=== PATIENT | female | born 1985 | race Caucasian/White ===

== ENCOUNTER 2019-05-17 11:26 | Emergency (ER) | payer OTHER ==
[2019-05-17 11:39] VITALS: BP 124/85; PULSE 96; RESP 16; TEMP 97.9
--- NOTE | 2019-05-17 12:39 | XR ---
EXAMINATION TYPE: XR forearm bilateral DATE OF EXAM: 05/17/2019 COMPARISON: None HISTORY: Possible abscesses along bilateral mid ulnar forearms TECHNIQUE: Lateral forms are examined in 2 projections each FINDINGS: Right forearm: There is soft tissue swelling over the ulnar aspect of the right forearm. Mi ld soft tissue swelling is also over the proximal ulnar aspect of the left forearm. No underlying foreign bodies are identified. Osseous structures appear intact. IMPRESSION: 1. No radiopaque foreign bodies. 2. Soft tissue swelling proximal bilateral ulnar aspect forearms.
--- NOTE | 2019-05-17 13:39 | ED ---
General Adult HPI - General Chief complaint: Skin/Abscess/Foreign Body Stated complaint: Abcess on arms Time Seen by Provider: 05/17/19 11:44 Source: patient, RN notes reviewed Mode of arrival: ambulatory Limitations: no limitations - History of Present Illness Initial comments: 33-year-old female presents to the emergency department for a chief complaint of nodules to the bilateral arms. Patient states they have been there for over 2 months. Patient is an IV drug abuser. Patient denies any fevers or chills. States that she started on Bactrim a few days ago and these have actually improved since.Patient has no other complaints at this time including shortness of breath, chest pain, abdominal pain, nausea or vomiting, headache, or visual changes. - Related Data Home Medications Medication Instructions Recorded Confirmed Acetaminophen [Tylenol Arthritis] 650 mg PO Q4H PRN 05/17/19 05/17/19 Buprenorphine HCl [Subutex] See Taper SL DIRECTED 05/17/19 05/17/19 Calcium Carb/Magnesium Ox,Carb 2 tab PO DAILY 05/17/19 05/17/19 [Kurt-Mag 500-250 MG Chewable] Hyoscyamine Sulfate [Levsin] 0.125 mg PO QID PRN 05/17/19 05/17/19 Ibuprofen [Motrin] 600 mg PO Q6HR PRN 05/17/19 05/17/19 Loperamide [Imodium] 2 mg PO Q6H PRN 05/17/19 05/17/19 Mirtazapine [Remeron] 15 mg PO HS 05/17/19 05/17/19 Ondansetron HCl [Zofran] 8 mg PO Q6H PRN 05/17/19 05/17/19 Sulfamethox-Tmp 800-160Mg [Bactrim 1 tab PO BID 05/17/19 05/17/19 DS 800-160 mg] Trimethobenzamide HCl [Tigan] 300 mg PO Q6H PRN 05/17/19 05/17/19 busPIRone HCl [Buspar] 10 mg PO TID PRN 05/17/19 05/17/19 cloNIDine HCL [Catapres] 0.1 mg PO Q4H PRN 05/17/19 05/17/19 traZODone HCL 50 - 150 mg PO HS 05/17/19 05/17/19 Allergies Allergy/AdvReac Type Severity Reaction Status Date / Time No Known Allergies Allergy Verified 05/17/19 11:59 Review of Systems ROS Statement: Those systems with pertinent positive or pertinent negative responses have been documented in the HPI. ROS Other: All systems not noted in ROS Statement are negative. Past Medical History Additional Past Medical History / Comment(s): migraines, scolosis History of Any Multi-Drug Resistant Organisms: None Reported Past Surgical History: Orthopedic Surgery Additional Past Surgical History / Comment(s): tubal removal Past Psychological History: No Psychological Hx Reported Smoking Status: Current every day smoker Past Alcohol Use History: None Reported Past Drug Use History: Heroin General Exam Limitations: no limitations General appearance: alert, in no apparent distress Head exam: Present: atraumatic, normocephalic, normal inspection Eye exam: Present: normal appearance, PERRL, EOMI. Absent: scleral icterus, conjunctival injection, periorbital swelling ENT exam: Present: normal exam, mucous membranes moist Neck exam: Present: normal inspection, full ROM. Absent: tenderness, meningismus, lymphadenopathy Respiratory exam: Present: normal lung sounds bilaterally. Absent: respiratory distress, wheezes, rales, rhonchi, stridor Cardiovascular Exam: Present: regular rate, normal rhythm, normal heart sounds. Absent: systolic murmur, diastolic murmur, rubs, gallop, clicks Extremities exam: Present: other (Patient has a 2 cm x 2 cm nodules noted to the left and right on her forearms. There are 3 on the right arm and 2 on the left. These are non-erythematous and do not appear cellulitic. They are fluctuant.) Course Vital Signs 05/17/19 11:36 Temperature 97.9 F Pulse Rate 96 Respiratory 16 Rate Blood Pressure 124/85 O2 Sat by Pulse 98 Oximetry Medical Decision Making - Medical Decision Making X-rays were taken of the bilateral forearms given patient is an IV drug abuser, this showed no radiopaque foreign bodies. Soft tissue swelling noted. I did recommend incision and drainage however patient refuses and states they are improving on antibiotic therapy and she would like to continue this to see if they saw. She again denies fevers or worsening symptoms. I did recommend patient return here if these began worsening or she develops fevers for incision and drainage. She agrees with this. Disposition Clinical Impression: Skin nodule Disposition: HOME SELF-CARE Condition: Good Instructions (If sedation given, give patient instructions): Abscess (ED) Additional Instructions: Continue to take your antibiotic. If these worsen or you develop fever return to the emergency department for incision and drainage and further antibiotics. Is patient prescribed a controlled substance at d/c from ED?: No Referrals: Karina Tariq MD [REFERRING] - 1-2 days Time of Disposition: 13:38
== END 2019-05-17 13:53 | disposition home or self-care (01) ==
LOC: EC 11:26
DX: R22.33 Localized swelling, mass and lump, upper limb, bilateral (principal); F17.200 Nicotine dependence, unspecified, uncomplicated; Z79.899 Other long term (current) drug therapy
CPT/HCPCS: 99283